=== PATIENT | female | born 1995 | race Native Hawaiian/Other Pacific Islander ===

== ENCOUNTER 2020-08-03 11:50 | Emergency (ER) | payer OTHER ==
[~2020-08-03] VITALS: Ht 177.8 cm; Wt 99.3 kg
[~2020-08-03 11:50] MED LIST: ALBU90AE13 INH; ALBUTEROL0.083 % IN; AMOX875T8 PO; LORA10TA3 PO; MEDROL DOSEPAK4 MG OR
[2020-08-03 11:57] VITALS: TEMP 98.4
[2020-08-03 13:05] VITALS: BP 110/72
== END 2020-08-03 13:05 | disposition home or self-care (01) ==
LOC: ED 11:50
DX: M25.562 Pain in left knee (principal); G89.29 Other chronic pain
CPT/HCPCS: 81025; 96372; 99283; J1885; J2930